=== PATIENT | female | born 1935 | race Caucasian/White ===

== ENCOUNTER 2021-12-05 15:54 | Inpatient (IN) | payer MEDICARE ==
[~2021-12-05] VITALS: Ht 154.9 cm; Wt 62.1 kg
[~2021-12-05 15:54] MED LIST: ATIVAN0.5 MG PO
[2021-12-05 16:23] LABS: RED BLOOD COUNT 4.58 M/UL (4.00-5.10); WHITE BLOOD COUNT 15.1 K/UL (4.5-11.0)
[2021-12-06 06:52] LABS: HEMOGLOBIN 13.6 gm/dl (12.3-15.3); RED BLOOD COUNT 4.49 M/UL (4.00-5.10)
--- NOTE | 2021-12-06 14:27 | NUR ---
discussed with dr. godfrey of patient EKG reading this morning and he acknowledged. no new order received
[2021-12-06] MEDS ORDERED: FERROUS SULFAT325 MG PO (15:18)
[2021-12-06] MEDS ORDERED: KLONOPIN0.5 MG PO (15:19)
[2021-12-06] MEDS ORDERED: PROTONIX40 MG PO (15:20)
[2021-12-06] MEDS ORDERED: GABAPENTIN300 MG PO (15:20)
[2021-12-06] MEDS ORDERED: LORATADINE10 MG PO (15:21)
[2021-12-06] MEDS ORDERED: ALLOPURINOL100 MG PO (15:21)
[2021-12-06] MEDS ORDERED: SERTRALINE HCL25 MG PO (15:21)
[2021-12-06] MEDS ORDERED: ENTRESTO 24 MG1 EACH PO (15:22)
[2021-12-06] MEDS ORDERED: PROVENTIL HFA6.7 GM INH (15:22)
[2021-12-06] MEDS ORDERED: SIMVASTATIN20 MG PO (15:23)
[2021-12-06] MEDS ORDERED: CLOPIDOGREL75 MG PO (15:24)
[2021-12-06] MEDS ORDERED: SPIRIVA HANDIH18 MCG INH (15:25)
[2021-12-06] MEDS ORDERED: METOPROLOL SUCC25 MG PO (15:26)
[2021-12-06] MEDS ORDERED: MAGNESIUM OXID400 M1 PO (15:27)
[2021-12-07 04:26] LABS: HEMOGLOBIN 13.3 gm/dl (12.3-15.3); RED BLOOD COUNT 4.38 M/UL (4.00-5.10); WHITE BLOOD COUNT 10.6 K/UL (4.5-11.0)
[2021-12-08 03:31] LABS: HEMOGLOBIN 12.1 gm/dl (12.3-15.3); RED BLOOD COUNT 4.01 M/UL (4.00-5.10); WHITE BLOOD COUNT 8.8 K/UL (4.5-11.0)
[2021-12-08 03:52] LABS: BUN/CREATININE RATIO 31 (0-10)
[2021-12-09 01:56] LABS: HEMOGLOBIN 11.5 gm/dl (12.3-15.3); RED BLOOD COUNT 3.8 M/UL (4.00-5.10); WHITE BLOOD COUNT 8.6 K/UL (4.5-11.0)
--- NOTE | 2021-12-09 04:36 | NUR ---
MADE AWARE OF MAG 2.6. NO NEW ORDERS NOTED.
[2021-12-10 02:36] LABS: HEMOGLOBIN 10.6 gm/dl (12.3-15.3); RED BLOOD COUNT 3.47 M/UL (4.00-5.10)
[2021-12-10 02:39] LABS: WHITE BLOOD COUNT 6.2 K/UL (4.5-11.0)
[2021-12-10 02:54] LABS: BUN/CREATININE RATIO 35 (0-10)
[2021-12-11 06:41] LABS: HEMOGLOBIN 11.3 gm/dl (12.3-15.3); RED BLOOD COUNT 3.73 M/UL (4.00-5.10); WHITE BLOOD COUNT 7.4 K/UL (4.5-11.0)
[2021-12-11 07:10] LABS: BUN/CREATININE RATIO 29 (0-10)
[2021-12-11] MEDS ORDERED: ELIQUIS 2.5 MG2.5 MG PO (14:21)
== END 2021-12-11 17:53 | disposition home health service (06) | DRG 522 ==
LOC: ER1 15:54 → CDU 18:34 → M/S 18:34
PROVIDERS: Emergency Medicine; Orthopaedic Surgery; ADMIT Internal Medicine
PROC: B24BZZZ Ultrasonography of Heart with Aorta (ICD-10-PCS; 2021-12-06)
PROC: 0SRR0JZ Replacement of Right Hip Joint, Femoral Surface with Synthetic Substitute, Open Approach (ICD-10-PCS; principal; 2021-12-07 12:30)
DX: S72.001A Fracture of unspecified part of neck of right femur, initial encounter for closed fracture (principal); I25.10 Atherosclerotic heart disease of native coronary artery without angina pectoris; I10 Essential (primary) hypertension; E78.5 Hyperlipidemia, unspecified; I44.7 Left bundle-branch block, unspecified; W01.0XXA Fall on same level from slipping, tripping and stumbling without subsequent striking against object, initial encounter; Z95.1 Presence of aortocoronary bypass graft; Z98.890 Other specified postprocedural states; Z82.49 Family history of ischemic heart disease and other diseases of the circulatory system; Z79.899 Other long term (current) drug therapy
CPT/HCPCS: ECHO; 36415; 70450; 71045; 72125; 73502; 73700; 76000; 80048; 80053; 80061; 82550; 82553; 83036; 83735; 83880; 84100; 84439; 84443; 84484; 85025; 85610; 85730; 93005; 93306; 94664; 94760; 96374; 96376; 97110; 97110-GP-CQ; 97162; 97167; 97530; 97530-GP-CQ; 99285; C1776; J0690; J1100; J1170; J2001; J2250; J2270; J2704; J2795; J3010